=== PATIENT | male | born 1990 | race African-American/Black ===

== ENCOUNTER 2023-12-09 04:50 | Emergency (ER) | payer MEDICAID ==
[~2023-12-09] VITALS: Ht 177.8 cm; Wt 86.2 kg
[2023-12-09] MEDS ORDERED: AMOX875T2 PO (05:17)
[2023-12-09 05:18] VITALS: BP 126/74; TEMP 98
[2023-12-09 05:22] VITALS: O2SAT 99
== END 2023-12-09 05:24 | disposition home or self-care (01) ==
LOC: ER 04:59
DX: H66.91 Otitis media, unspecified, right ear (principal); R05.9 Cough, unspecified; R09.81 Nasal congestion